=== PATIENT | female | born 1930 | race Two or more races ===

== ENCOUNTER 2018-01-13 21:31 | Inpatient (IN) | payer MEDICARE, OTHER ==
[~2018-01-13] VITALS: Ht 157.5 cm; Wt 66.4 kg
--- NOTE | 2018-01-13 21:40 | NUR ---
PT BIB [facility] WITH A C/O SOB. PT IS AFIB ON THE MONITOR AND WAS DX WITH AFIB IN DECEMBER. PT WAS TAKEN TO ROOM #7 AND PLACED ON THE MONITOR AND CONTINUOUS PULSE OX. PT'S RESP EVEN AND UNLABORED. PT'S DAUGHTER IS AT THE BEDSIDE.
[2018-01-13 21:57] LABS: BASOPHILS % (AUTO) 0.6 % (0.0-2.0); EOSINOPHILS % (AUTO) 0.5 % (0.0-6.0); HEMATOCRIT 26 % (33-45); HEMOGLOBIN 8.8 g/dL (11.5-14.8); LYMPHOCYTES # (AUTO) 0.7 /CMM (0.8-4.8); LYMPHOCYTES % (AUTO) 39.3 % (20.0-44.0); MEAN CORPUSCULAR HGB CONC 35 g/dl (31.0-36.0); MEAN CORPUSCULAR VOLUME 90 fL (82-100); MONOCYTES # (AUTO) 0.2 /CMM (0.1-1.30); MONOCYTES % (AUTO) 9.1 % (2.0-12.0); NEUTROPHILS % (AUTO) 50.5 % (43.0-81.0); RDW COEFFICIENT OF VARIATION 18.3 (11.5-15.0); RED BLOOD CELL COUNT(AUTO) 2.84 MIL/uL (4.0-5.2)
[2018-01-13 22:01] LABS: PLATELET COUNT (AUTO) 47 /CMM (150-450); WHITE BLOOD COUNT (AUTO) 1.9 K/uL (4.3-11.0)
[2018-01-13 22:12] LABS: BAND % (MANUAL) 3 % (0.0-5.0); BASOPHILS % (MANUAL) 0 % (0.0-2.0); EOSINOPHILS % (MANUAL) 0 % (0-4); LYMPHOCYTES % (MANUAL) 38 % (16-48); MONOCYTES % (MANUAL) 8 % (0-11.0); NEUTROPHILS % (MANUAL) 51 (42-76)
[2018-01-13 22:15] LABS: CALCIUM, SERUM 8.9 mg/dL (8.5-10.1); CARBON DIOXIDE 27 mmol/L (21-32); CHLORIDE 103 mmol/L (98-107); CREATININE 0.8 mg/dL (0.6-1.3); GLUCOSE 111 mg/dL (74-106); POTASSIUM 4.4 mmol/L (3.5-5.1); SODIUM SERUM 140 mmol/L (136-145); UREA NITROGEN, BLOOD 17 mg/dL (7-18)
[2018-01-13 22:18] LABS: TROPONIN I 0.018 ng/mL (0.00-0.056)
[2018-01-13 22:21] LABS: ALANINE AMINOTRANSFERASE 34 U/L (12-78); ALBUMIN 3.5 g/dL (3.4-5.0); ALKALINE PHOSPHATASE 57 U/L (46-116); ASPARTATE AMINOTRANSFERASE 22 U/L (15-37); BILIRUBIN,DIRECT 0.3 mg/dL (0.0-0.2); TOTAL PROTEIN, SERUM 7.3 g/dL (6.4-8.2)
[2018-01-13 22:22] LABS: INR 1.3 (0.87-1.13)
[2018-01-13] MEDS ORDERED: AMIODARONE 150 MG/3 ML VIAL IV ONE ×3 (22:30→22:46)
[2018-01-13] MEDS ORDERED: ASPIRIN 81 MG TAB.CHEW PO ONE (22:30)
[2018-01-13] MEDS ORDERED: NITROGLYCERIN PACKET 1 GM PACKET TD ONE (22:30)
[2018-01-13] MEDS ORDERED: IOHEXOL-350 100 ML VIAL IV ONE (22:32)
[2018-01-13] MEDS ORDERED: CT SWABBABLE VALVE TRANS SET 1 EA INFUS.SET MC ONE (22:32)
[2018-01-13] MEDS ORDERED: IV NS 0.9% 250 ML IV ONE (22:33)
[2018-01-13] MEDS ORDERED: NITROGLYCERIN PACKET 1 GM PACKET ONE (22:50)
[2018-01-13] MEDS ORDERED: FUROSEMIDE 20 MG/2 ML VIAL ONE (22:51)
[2018-01-13] MEDS ORDERED: ASPIRIN 81 MG TAB.CHEW ONE (22:51)
[2018-01-13] MEDS: FUROSEMIDE 20 MG/2 ML VIAL IV ONE (22:54)
--- NOTE | 2018-01-13 23:05 | NUR ---
PT'S FAMILY IS AT THE BEDSIDE. PT IS [place] SPEAKING ONLY. PT IS ON THE MONITOR AND CONTINUOUS PULSE OX. PT MEDICATED ORDERED.
--- NOTE | 2018-01-14 00:30 | NUR ---
PT USED BEDSIDE COMMODE.
[2018-01-14] MEDS ORDERED: LOSA1TAB3 PO (01:27)
[2018-01-14] MEDS ORDERED: ROSU5TAB PO (01:27)
[2018-01-14] MEDS ORDERED: METO25TA6 PO (01:27)
[2018-01-14] MEDS ORDERED: ASPI-605 PO (01:34)
--- NOTE | 2018-01-14 01:50 | NUR ---
PT APPEARS TO BE RESTING COMFORTABLY.
[2018-01-14] MEDS ORDERED: ONDANSETRON HCL/PF 4 MG/2 ML VIAL IVP PRN (02:00)
[2018-01-14] MEDS ORDERED: MAGNESIUM HYDROXIDE 30 ML UDC PO PRN (02:00)
[2018-01-14] MEDS ORDERED: Z GUARD REMEDY 2 OZ OINT TP PRN (02:00)
[2018-01-14] MEDS ORDERED: HYDROCODONE/APAP 5/325MG 1 EACH TABLET PO PRN (02:00)
[2018-01-14] MEDS ORDERED: ZOLPIDEM TARTRATE 5 MG TABLET PO PRN (02:00)
[2018-01-14] MEDS ORDERED: MAG HYDROX/AL HYDROX/SIMETH 30 ML UDC PO PRN (02:00)
[2018-01-14] MEDS ORDERED: ACETAMINOPHEN 325 MG TABLET PO PRN (02:00)
--- NOTE | 2018-01-14 02:01 | NUR ---
PT USED BEDSIDE COMMODE.
[2018-01-14 04:00] VITALS: BP 127/79
--- NOTE | 2018-01-14 04:05 | NUR ---
RN EVELYN NOTES RECIEVED PATIENT AND REPORT FROM ER. PATIENT IS ON IV AMIODARONE DRIP AT 1MG/MINUTE. ON OXYGEN VIA NC AT 2LPM. PATIENT IS AMBULATORY. SPEAKS AND UNDERSTANDS [place] ONLY. CAME WITH FAMILY. PATIENT CAME WITH NITRO PATCH ON MID CHEST
--- NOTE | 2018-01-14 05:54 | NUR ---
RN EVELYN NOTES. AT 5:15AM CHANGED RATE OF AMIODARONE DRIP TO 0.5MG/MIN TO RUN FOR 18 HOURS
[2018-01-14 08:00] VITALS: BP 118/66
[2018-01-14] MEDS: LOSARTAN/HCTZ 50-12.5MG/ 1 EA TABLET PO SCH ×2 (08:18→16:37)
[2018-01-14] MEDS: METOPROLOL TARTRATE 25 MG TABLET PO SCH ×2 (08:22→16:38)
[2018-01-14] MEDS ORDERED: AMIODARONE 900 MG in IV D5W 482 ML IV PRN (08:30)
[2018-01-14] MEDS ORDERED: AMIODARONE 150 MG in IV D5W 100 ML IV ONE (08:30)
[2018-01-14 08:39] LABS: BASOPHILS % (AUTO) 0.4 % (0.0-2.0); EOSINOPHILS % (AUTO) 0.2 % (0.0-6.0); HEMATOCRIT 25 % (33-45); HEMOGLOBIN 8.4 g/dL (11.5-14.8); LYMPHOCYTES # (AUTO) 0.6 /CMM (0.8-4.8); LYMPHOCYTES % (AUTO) 38.3 % (20.0-44.0); MEAN CORPUSCULAR HGB CONC 34 g/dl (31.0-36.0); MEAN CORPUSCULAR VOLUME 90 fL (82-100); MONOCYTES # (AUTO) 0.2 /CMM (0.1-1.30); MONOCYTES % (AUTO) 9.7 % (2.0-12.0); NEUTROPHILS # (AUTO) 0.8 /CMM (1.8-8.9); NEUTROPHILS % (AUTO) 51.4 % (43.0-81.0); RDW COEFFICIENT OF VARIATION 18.8 (11.5-15.0); RED BLOOD CELL COUNT(AUTO) 2.74 MIL/uL (4.0-5.2)
[2018-01-14 08:53] LABS: ALANINE AMINOTRANSFERASE 33 U/L (12-78); ALBUMIN 3.4 g/dL (3.4-5.0); ALKALINE PHOSPHATASE 52 U/L (46-116); ASPARTATE AMINOTRANSFERASE 28 U/L (15-37); BILIRUBIN,TOTAL 1.2 mg/dL (0.2-1.0); CALCIUM, SERUM 8.9 mg/dL (8.5-10.1); CARBON DIOXIDE 28 mmol/L (21-32); CHLORIDE 102 mmol/L (98-107); CREATININE 0.9 mg/dL (0.6-1.3); GLUCOSE 118 mg/dL (74-106); POTASSIUM 3.9 mmol/L (3.5-5.1); SODIUM SERUM 138 mmol/L (136-145); TOTAL PROTEIN, SERUM 7.1 g/dL (6.4-8.2); UREA NITROGEN, BLOOD 14 mg/dL (7-18)
[2018-01-14 08:56] LABS: TROPONIN I 0.021 ng/mL (0.00-0.056)
[2018-01-14] MEDS ORDERED: FUROSEMIDE 20 MG/2 ML VIAL IV SCH (09:00)
[2018-01-14 09:11] LABS: PLATELET COUNT (AUTO) 41 /CMM (150-450); WHITE BLOOD COUNT (AUTO) 1.7 K/uL (4.3-11.0)
[2018-01-14 10:53] LABS: MAGNESIUM 1.8 mg/dL (1.8-2.4); THYROID STIMULATING HORMONE 0.772 uIU/mL (0.358-3.74)
[2018-01-14 10:54] LABS: PHOSPHORUS 4.5 mg/dL (2.5-4.9)
[2018-01-14 11:54] LABS: BAND % (MANUAL) 1 % (0.0-5.0); LYMPHOCYTES % (MANUAL) 41 % (16-48); NEUTROPHILS % (MANUAL) 51 (42-76)
[2018-01-14 11:55] LABS: MONOCYTES % (MANUAL) 7 % (0-11.0)
[2018-01-14 12:00] VITALS: BP 95/60
[2018-01-14] MEDS: DIGOXIN INJ 0.5 MG/2 ML AMPUL IV SCH ×2 (12:04→17:56)
[2018-01-14 13:14] LABS: URIC ACID 6.6 mg/dL (2.6-7.2)
[2018-01-14 13:29] LABS: D-DIMER 3.48 mg/L(FEU (0.17-0.50); INR 1.27 (0.87-1.13)
[2018-01-14 16:00] VITALS: BP 109/55
--- NOTE | 2018-01-14 19:17 | NUR ---
Patient is alert and pleasant.She lives with her daughter Katelynn in [place]. Patient is ambulatory and independent with adl's. Has no DME or homehealth reported. Has good family support. Addendum: 01/14/18 at 8 by ALEXIS CORONADO RN Amended: Links added.
[2018-01-14 20:00] VITALS: BP 129/86
[2018-01-14] MEDS: ATORVASTATIN 10 MG TABLET PO SCH (21:49)
[2018-01-15] VITALS (7 sets, daily range): BP systolic 100–163; BP diastolic 49–82
[2018-01-15] MEDS: DIGOXIN INJ 0.5 MG/2 ML AMPUL IV SCH (00:37)
[2018-01-15 06:52] LABS: BASOPHILS % (AUTO) 0.6 % (0.0-2.0); EOSINOPHILS % (AUTO) 0.3 % (0.0-6.0); HEMATOCRIT 27 % (33-45); HEMOGLOBIN 9.2 g/dL (11.5-14.8); LYMPHOCYTES # (AUTO) 0.8 /CMM (0.8-4.8); LYMPHOCYTES % (AUTO) 29.3 % (20.0-44.0); MEAN CORPUSCULAR HGB CONC 35 g/dl (31.0-36.0); MEAN CORPUSCULAR VOLUME 90 fL (82-100); MONOCYTES # (AUTO) 0.3 /CMM (0.1-1.30); MONOCYTES % (AUTO) 9.9 % (2.0-12.0); NEUTROPHILS # (AUTO) 1.6 /CMM (1.8-8.9); NEUTROPHILS % (AUTO) 59.9 % (43.0-81.0); RDW COEFFICIENT OF VARIATION 18.1 (11.5-15.0); RED BLOOD CELL COUNT(AUTO) 2.94 MIL/uL (4.0-5.2); WHITE BLOOD COUNT (AUTO) 2.6 K/uL (4.3-11.0)
[2018-01-15 07:02] LABS: ALANINE AMINOTRANSFERASE 30 U/L (12-78); ALBUMIN 3.3 g/dL (3.4-5.0); ALKALINE PHOSPHATASE 47 U/L (46-116); ASPARTATE AMINOTRANSFERASE 16 U/L (15-37); BILIRUBIN,TOTAL 1.4 mg/dL (0.2-1.0); CALCIUM, SERUM 9.4 mg/dL (8.5-10.1); CARBON DIOXIDE 33 mmol/L (21-32); CHLORIDE 103 mmol/L (98-107); CREATININE 0.7 mg/dL (0.6-1.3); GLUCOSE 94 mg/dL (74-106); MAGNESIUM 1.6 mg/dL (1.8-2.4); SODIUM SERUM 140 mmol/L (136-145); TOTAL PROTEIN, SERUM 7.3 g/dL (6.4-8.2); UREA NITROGEN, BLOOD 10 mg/dL (7-18)
[2018-01-15 07:05] LABS: PLATELET COUNT (AUTO) 42 /CMM (150-450)
--- NOTE | 2018-01-15 07:12 | NUR ---
Nurse Notes: Report from RN Farhat Rankin, that patient had IV inflitrate from Amiodarone drip, left arm was swollened yesterday 01/14 on machinist 2nd shift, arm this morning 01/15/2018 is still swollened and painful, only pain patient complains of is pain in left antecubital site.
[2018-01-15] MEDS: METOPROLOL TARTRATE 25 MG TABLET PO SCH (08:37)
[2018-01-15] MEDS: LOSARTAN/HCTZ 50-12.5MG/ 1 EA TABLET PO SCH ×2 (08:37→18:21)
[2018-01-15 08:43] LABS: CHOLESTEROL 60 mg/dL (<200); HDL CHOLESTEROL 41 mg/dL (40-60); LDL 25 mg/dL (0-99); THYROID STIMULATING HORMONE 0.475 uIU/mL (0.358-3.74); TRIGLYCERIDES 43 mg/dL (30-150)
[2018-01-15 09:20] LABS: *SPE A/G RATIO 1.3 (0.7-1.7); *SPE ALBUMIN 3.5 g/dL (2.9-4.4); *SPE ALPHA-1-GLOBULIN 0.2 g/dL (0.0-0.4); *SPE ALPHA-2-GLOBULIN 0.3 g/dL (0.4-1.0); *SPE BETA GLOBULIN 0.7 g/dL (0.7-1.3); *SPE GLOBULIN, TOTAL 2.6 g/dL (2.2-3.9); *SPE M-SPIKE Not Observed g/dL (Not Observed); *SPEGAMMA GLOBULIN 1.3 g/dL (0.4-1.8)
[2018-01-15 10:10] LABS: BAND % (MANUAL) 2 % (0.0-5.0); LYMPHOCYTES % (MANUAL) 29 % (16-48); MONOCYTES % (MANUAL) 11 % (0-11.0); NEUTROPHILS % (MANUAL) 58 (42-76)
[2018-01-15] MEDS: Magnesium 1GM/D5W 100ML PREMIX 100 ML IV SCH ×2 (12:18→13:15)
--- NOTE | 2018-01-15 15:20 | NUR ---
Nurses Notes: Received magnesium 1 gm x 2 thru IV, over 1 hour each. Up to bathroom and voiding. No complaints of pain given. uses oxygen, patient removes it when eating and going to bathroom. No complaints of any shortness of breath. Eating 75-80% meals.
--- NOTE | 2018-01-15 16:50 | NUR ---
Nurse Notes: Grandhilary Mata at bedside wants updates with the condition of the patient. was explained magnesium received, and oxygen needed, text nurse practitioner Rafaela Marquis to call grand-daughter. Pulse ox checked on room air, oxygen satuation decreased to 88%, within few minutes, rechecked on 2 liters, return to 94%.
--- NOTE | 2018-01-15 18:12 | NUR ---
Patient is eating, take oxygen off, pulse ox is 84-87%, patient encouraged to have oxygen on while eating, pulse ox 92% with 2 liters oxygen applied nasal cannula
--- NOTE | 2018-01-15 19:30 | NUR ---
RECEIVED PATIENT IN BED,TALKING TO HER DAUGHTER. PATIENT IS AAO X3, FORGETFUL VSS, AFEBRILE, O2 94% ON 2L VIA NC, DENIES PAIN AT THIS TIME. LEFT ARM IV INFILTRATION NOTED- ARM IS RED, SWOLLEN WITH SMALL BLACK SCAB IN THE MIDDLE CHARGE NURSE DELFINO HOWARD, Yue ROD WELDER NOTIFIED, NURSE PARTITIONAL DID NOT GIVE ANY ORDERS ICE PACK PLACE ON THE LEFT ARM. CONTINUE TO MONITOR
--- NOTE | 2018-01-15 21:00 | NUR ---
FAMILY STILL AT THE BEDSIDE EDUCATION/INSTRUCTIONS GIVEN TO THE FAMILY AND TO THE PATIENT SAFETY MEASURES IN PLACE. CONTINUE TO MONITOR
[2018-01-15] MEDS: ATORVASTATIN 10 MG TABLET PO SCH (21:01)
--- NOTE | 2018-01-15 21:05 | NUR ---
PATIENT'S SCHEDULED MEDICATIONS GIVEN AND TYLENOL FOR THE LEFT ARM PAIN PER PATIENT'S REQUEST. CONTINUE TO MONITOR
[2018-01-16] VITALS: BP 113/55
[2018-01-16 04:00] VITALS: BP 118/72
--- NOTE | 2018-01-16 06:00 | NUR ---
PATIENT RESTED PEACEFULLY THROUGH OUT THE NIGHT LEFT ARM INFILTRATION REMAINS NOT TREATED, WILL REINFORCED TO THE DAY NURSE
[2018-01-16 07:21] LABS: BASOPHILS % (AUTO) 1.3 % (0.0-2.0); EOSINOPHILS % (AUTO) 0.7 % (0.0-6.0); HEMATOCRIT 26 % (33-45); HEMOGLOBIN 8.9 g/dL (11.5-14.8); LYMPHOCYTES # (AUTO) 0.5 /CMM (0.8-4.8); LYMPHOCYTES % (AUTO) 30.9 % (20.0-44.0); MEAN CORPUSCULAR HGB CONC 34 g/dl (31.0-36.0); MEAN CORPUSCULAR VOLUME 90 fL (82-100); MONOCYTES # (AUTO) 0.2 /CMM (0.1-1.30); NEUTROPHILS % (AUTO) 53.1 % (43.0-81.0); RDW COEFFICIENT OF VARIATION 16.5 (11.5-15.0); RED BLOOD CELL COUNT(AUTO) 2.87 MIL/uL (4.0-5.2)
[2018-01-16 07:27] LABS: PLATELET COUNT (AUTO) 37 /CMM (150-450); WHITE BLOOD COUNT (AUTO) 1.7 K/uL (4.3-11.0)
[2018-01-16 07:32] LABS: ALANINE AMINOTRANSFERASE 24 U/L (12-78); ALKALINE PHOSPHATASE 46 U/L (46-116); ASPARTATE AMINOTRANSFERASE 13 U/L (15-37); BILIRUBIN,TOTAL 1.3 mg/dL (0.2-1.0); CALCIUM, SERUM 8.8 mg/dL (8.5-10.1); CARBON DIOXIDE 33 mmol/L (21-32); CHLORIDE 103 mmol/L (98-107); CREATININE 0.6 mg/dL (0.6-1.3); GLUCOSE 90 mg/dL (74-106); PHOSPHORUS 3.9 mg/dL (2.5-4.9); POTASSIUM 3.3 mmol/L (3.5-5.1); SODIUM SERUM 140 mmol/L (136-145); TOTAL PROTEIN, SERUM 6.6 g/dL (6.4-8.2); UREA NITROGEN, BLOOD 9 mg/dL (7-18)
[2018-01-16 08:00] VITALS: BP 121/65
[2018-01-16] MEDS: LOSARTAN/HCTZ 50-12.5MG/ 1 EA TABLET PO SCH ×2 (08:26→17:15)
[2018-01-16] MEDS ORDERED: METOPROLOL TARTRATE 25 MG TABLET PO SCH (09:00)
[2018-01-16 09:30] LABS: LYMPHOCYTES % (MANUAL) 30 % (16-48); MONOCYTES % (MANUAL) 11 % (0-11.0); NEUTROPHILS % (MANUAL) 59 (42-76)
[2018-01-16] MEDS ORDERED: POTASSIUM CHLORIDE 20 MEQ TAB.PRT.SR PO SCH (10:00)
[2018-01-16 12:00] VITALS: BP 100/58
[2018-01-16] MEDS ORDERED: FURO20TA4 PO (14:25)
[2018-01-16 16:00] VITALS: BP 142/65
[2018-01-16 17:15] VITALS: BP 142/65
--- NOTE | 2018-01-16 18:07 | NUR ---
Nurse Discharge Note: Daughter Lachelle came to unit, patient and daughter explained discharge instructions. [facility] with [facility] on saturday at 1399. Patient's daughter given oxygen tank, patient will use as needed hen short of breath. No request for pain medications. Hep lock removed earlier.
[2018-01-17 09:23] LABS: HAPTOGLOBIN <10 mg/dL (34-200)
== END 2018-01-16 18:10 | disposition home or self-care (01) | DRG 291 ==
LOC: ER 21:40 → TELE 01-14 01:48 → TELE-TD 01-14 02:38 → TELE1 01-14 10:00 → MEDSG1 01-16 11:00
PROVIDERS: ADMIT Internal Medicine; ATTEND Internal Medicine
DX: I11.0 Hypertensive heart disease with heart failure (principal); J96.00 Acute respiratory failure, unspecified whether with hypoxia or hypercapnia; D61.818 Other pancytopenia; I48.91 Unspecified atrial fibrillation; F03.90 Unspecified dementia, unspecified severity, without behavioral disturbance, psychotic disturbance, mood disturbance, and anxiety; I25.10 Atherosclerotic heart disease of native coronary artery without angina pectoris; D46.9 Myelodysplastic syndrome, unspecified; Z79.899 Other long term (current) drug therapy; Z79.82 Long term (current) use of aspirin; I42.9 Cardiomyopathy, unspecified; E04.2 Nontoxic multinodular goiter; Z86.73 Personal history of transient ischemic attack (TIA), and cerebral infarction without residual deficits; R91.8 Other nonspecific abnormal finding of lung field; E55.9 Vitamin D deficiency, unspecified; I50.23 Acute on chronic systolic (congestive) heart failure
CPT/HCPCS: 36415; 71045-TC; 76536-TC; 76700-TC; 80048-TC; 80053-TC; 80061-TC; 80076-TC; 82306; 82378; 82728-TC; 82746; 83010; 83540-TC; 83615-TC; 83735-TC; 83880; 84100-TC; 84155; 84165; 84439-TC; 84443-TC; 84484-TC; 84550-TC; 85025-TC; 85045-TC; 85378-TC; 85396; 85652-TC; 85730-TC; 87081-TC; 93307-TC; A4606; J0282; J1160; J1940; J3475; J7050; J7060; Q9967; Z7610